=== PATIENT | male | born 1950 | race Caucasian/White ===

== ENCOUNTER 2019-10-25 14:16 | Observation (INO) ==
[2019-10-25] MEDS ORDERED: Isovue-370 500 ML BOTTLE IVP ONE (14:36)
[2019-10-25 14:51] LABS: Hematocrit 42.9 % (37.5-50.1); Hemoglobin 14.5 g/dL (12.9-16.9); Mean Corpuscular HGB Conc 33.8 g/dL (31.6-35.5); Mean Corpuscular Hemoglobin 33.2 pg (28.0-33.3); Mean Corpuscular Volume 98.2 fL (83.0-100.0); Mean Platelet Volume 10.3 fL (9.4-12.4); Platelet Count 193 K/mcL (140-400); Red Blood Count 4.37 M/mcL (4.19-5.50); Red Cell Distribution Width 13.1 % (11.5-14.5); White Blood Count 9.3 K/mcL (4.3-11.1)
[2019-10-25 14:57] LABS: Activated Partial Thrombo Time 29.6 Seconds (26.0-36.0)
[2019-10-25 15:12] LABS: BUN/Creatinine Ratio 13 (6-26); Blood Urea Nitrogen 10 mg/dL (8-23); Calcium 9.4 mg/dL (8.6-10.3); Carbon Dioxide 25 mEq/L (23-29); Chloride 102 mEq/L (98-107); Glucose 79 mg/dL (70-105); Osmolality,Calculated 276 (280-300); Potassium 3.8 mEq/L (3.5-5.1); Sodium 134 mEq/L (136-145); eGFR For African Americans > 60 (> 60); eGFR For Non-African Americans > 60 (> 60)
[2019-10-25 15:14] LABS: Troponin I < 0.03 ng/mL (< 0.04)
[2019-10-25] MEDS ORDERED: Aspirin 325 MG TABLET PO ONE (16:04)
[2019-10-25] MEDS ORDERED: Naloxone 0.4 MG/ML INJ IVP PRN (17:18)
[2019-10-25] MEDS ORDERED: Ondansetron 4 MG/2 ML VIAL IVP PRN (17:18)
[2019-10-25] MEDS: *HR* Heparin 5,000 UNIT/ML VIAL SQ SCH (21:33)
[2019-10-26 01:54] LABS: BUN/Creatinine Ratio 14 (6-26); Blood Urea Nitrogen 12 mg/dL (8-23); Calcium 8.8 mg/dL (8.6-10.3); Carbon Dioxide 28 mEq/L (23-29); Chloride 104 mEq/L (98-107); Chol/HDL Ratio 2.1 (0-4.9); Cholesterol 170 mg/dL (< 200); Glucose 140 mg/dL (70-105); HDL Cholesterol 80 mg/dL (40-59); LDL Cholesterol,Calculated 75 mg/dL (0-99); Osmolality,Calculated 288 (280-300); Potassium 3.5 mEq/L (3.5-5.1); Sodium 138 mEq/L (136-145); Triglycerides 73 mg/dL (< 150); eGFR For African Americans > 60 (> 60); eGFR For Non-African Americans > 60 (> 60)
[2019-10-26] MEDS: *HR* Heparin 5,000 UNIT/ML VIAL SQ SCH ×2 (05:20→13:41)
[2019-10-26] MEDS ORDERED: Aspirin 81 MG TAB.CHEW PO SCH (09:00)
[2019-10-26 10:45] VITALS: BP 146/83
[2019-10-27] MEDS ORDERED: Verapamil ER (24 HR) 240 MG TABLET.ER PO SCH (09:00)
== END 2019-10-26 14:39 | disposition home or self-care (01) ==
LOC: 3BNU 14:16 → EMEROOARM 14:16 → 3BNU 18:30
PROVIDERS: ADMIT Family Medicine; ATTEND Family Medicine

== ENCOUNTER 2021-08-23 16:39 | Observation (INO) ==
[2021-08-23 17:23] LABS: Basophils # 0.1 K/mcL (0.0-0.2); Basophils % 0.4 %; Eosinophils # 0.1 K/mcL (0.0-0.6); Eosinophils % 1.1 %; Hematocrit 49.7 % (37.5-50.1); Hemoglobin 16.8 g/dL (12.9-16.9); Immature Granulocytes % 0.4 % (0-4); Lymphocytes # 1.8 K/mcL (0.6-4.6); Lymphocytes % 14.3 %; Mean Corpuscular HGB Conc 33.8 g/dL (31.6-35.5); Mean Corpuscular Hemoglobin 32.2 pg (28.0-33.3); Mean Corpuscular Volume 95.2 fL (83.0-100.0); Mean Platelet Volume 10.4 fL (9.4-12.4); Monocytes # 0.7 K/mcL (0.0-1.3); Monocytes % 5.4 %; Neutrophils # 10.1 K/mcL (1.6-8.9); Platelet Count 237 K/mcL (140-400); Red Blood Count 5.22 M/mcL (4.19-5.50); Red Cell Distribution Width 13.5 % (11.5-14.5); Segmented Neutrophils % 78.4 %; White Blood Count 12.9 K/mcL (4.3-11.1)
[2021-08-23 17:35] LABS: Activated Partial Thrombo Time 32.4 Seconds (26.0-36.0)
[2021-08-23] MEDS ORDERED: Ondansetron 4 MG/2 ML VIAL ONE (17:41)
[2021-08-23] MEDS: Ondansetron 4 MG/2 ML VIAL IVP PRN ×2 (17:43→19:07)
[2021-08-23 17:44] LABS: Alanine Aminotransferase 29 Units/L (7-52); Albumin 3.9 g/dL (3.5-5.7); Alkaline Phosphatase 105 Units/L (34-104); Aspartate Amino Transferase 25 Units/L (13-39); BUN/Creatinine Ratio 10 (6-26); Bilirubin,Direct 0.1 mg/dL (0.0-0.2); Bilirubin,Indirect 0.4 mg/dL (0.0-1.0); Bilirubin,Total 0.5 mg/dL (0.3-1.0); Blood Urea Nitrogen 8 mg/dL (8-23); Calcium 9.1 mg/dL (8.6-10.3); Carbon Dioxide 26 mEq/L (23-29); Chloride 104 mEq/L (98-107); Ethanol 392 mg/dL (Less than 10); Globulin 3.9 g/dL (2.4-3.5); Glucose 97 mg/dL (70-105); Osmolality,Calculated 292 (280-300); Potassium 3.8 mEq/L (3.5-5.1); Sodium 142 mEq/L (136-145); Total Protein 7.8 g/dL (6.4-8.9); eGFR For African Americans > 60 (> 60); eGFR For Non-African Americans > 60 (> 60)
[2021-08-23 17:50] LABS: Troponin I 0.04 ng/mL (< 0.04)
[2021-08-23] MEDS ORDERED: Acetaminophen 325 MG TABLET PO PRN (22:21)
[2021-08-23] MEDS ORDERED: Ondansetron 4 MG/2 ML VIAL IVP PRN (22:21)
[2021-08-23] MEDS ORDERED: Melatonin 3 MG TABLET PO PRN (22:21)
[2021-08-23] MEDS ORDERED: Naloxone 0.4 MG/ML INJ IVP PRN (22:21)
[2021-08-23] MEDS ORDERED: *HR* LORazepam 2 MG/ML VIAL IVP PRN ×3 (23:14)
[2021-08-24 00:32] LABS: Basophils % 0.2 %; Eosinophils % 0.1 %; Hematocrit 50.3 % (37.5-50.1); Hemoglobin 17.2 g/dL (12.9-16.9); Immature Granulocytes % 1.2 % (0-4); Lymphocytes # 1.2 K/mcL (0.6-4.6); Lymphocytes % 7.6 %; Mean Corpuscular HGB Conc 34.2 g/dL (31.6-35.5); Mean Corpuscular Hemoglobin 32.3 pg (28.0-33.3); Mean Corpuscular Volume 94.4 fL (83.0-100.0); Mean Platelet Volume 10.8 fL (9.4-12.4); Monocytes # 0.7 K/mcL (0.0-1.3); Monocytes % 4.8 %; Platelet Count 250 K/mcL (140-400); Red Blood Count 5.33 M/mcL (4.19-5.50); Red Cell Distribution Width 13.8 % (11.5-14.5); Segmented Neutrophils % 86.1 %; White Blood Count 15.1 K/mcL (4.3-11.1)
[2021-08-24 00:56] LABS: Alanine Aminotransferase 28 Units/L (7-52); Albumin 3.9 g/dL (3.5-5.7); Alkaline Phosphatase 108 Units/L (34-104); Aspartate Amino Transferase 26 Units/L (13-39); BUN/Creatinine Ratio 14 (6-26); Bilirubin,Total 0.7 mg/dL (0.3-1.0); Blood Urea Nitrogen 10 mg/dL (8-23); Calcium 9.1 mg/dL (8.6-10.3); Carbon Dioxide 19 mEq/L (23-29); Chloride 104 mEq/L (98-107); Chol/HDL Ratio 2.5 (0-4.9); Cholesterol 177 mg/dL (< 200); Globulin 4.1 g/dL (2.4-3.5); Glucose 106 mg/dL (70-105); HDL Cholesterol 70 mg/dL (40-59); LDL Cholesterol,Calculated 89 mg/dL (< 100); Magnesium 1.7 mg/dL (1.6-2.6); Osmolality,Calculated 287 (280-300); Sodium 139 mEq/L (136-145); Triglycerides 88 mg/dL (< 150); eGFR For African Americans > 60 (> 60); eGFR For Non-African Americans > 60 (> 60)
[2021-08-24] MEDS: Ringers Solution, Lactated 1,000 ML IVC SCH ×2 (01:15→11:46)
[2021-08-24] MEDS ORDERED: Perflutren Lipid Microsphere 1.3 ML in 0.9 % Sodium Chloride 8.7 ML IVP PRN (01:18)
[2021-08-24 03:01] LABS: Thyroid Stimulating Hormone 0.543 mcIU/mL (0.340-5.600)
[2021-08-24 03:37] LABS: Estimated Average Glucose 100 mg/dl; Hemoglobin A1C 5.1 %
[2021-08-24] MEDS: *HR* Enoxaparin 40 MG/0.4 ML SYRINGE SQ SCH (04:54)
[2021-08-24 05:27] LABS: Bilirubin,Urine Negative (Negative); Blood,Urine Negative (Negative); Clarity,Urine Clear (Clear); Color,Urine Yellow (Yellow); Glucose,Urine (UA) Normal (Normal); Ketones,Urine 10 mg/dL (Negative); Leukocyte Esterase,Urine Negative (Negative); Mucus,Urine Few per lpf (None-Few); Nitrite,Urine Negative (Negative); PH,Urine 5.5 pH Units (5.0-8.0); Protein,Urine 30 mg/dL (Neg-Trace); RBC,Urine 0-3 per hpf (0-3); Specific Gravity,Urine 1.026 (1.010-1.025); Squamous Epithelial Cell,Urine Few per hpf (None-Few); Urobilinogen,Urine Normal (Normal); WBC,Urine 0-3 per hpf (0-3)
[2021-08-24 05:34] LABS: Amphetamine Screen,Urine Negative ng/mL (Cutoff=1000); Barbiturate Screen,Urine Negative ng/mL (Cutoff=200); Benzodiazepines Screen,Urine Negative ng/mL (Cutoff=200); Cannabinoid Screen,Urine Negative ng/mL (Cutoff = 50); Cocaine Screen,Urine Negative ng/mL (Cutoff= 300); Opiate Screen,Urine Negative ng/mL (Cutoff=300); Phencyclidine Screen,Urine Negative ng/mL (Cutoff=25)
[2021-08-24 09:21] LABS: Folate 16.8 ng/mL (3.0-16.0)
[2021-08-24] MEDS ORDERED: Cyanocobalamin (B-12) 1,000 MCG/ML VIAL IM ONE (10:07)
[2021-08-24] MEDS: Thiamine (B-1) 100 MG TABLET PO SCH (11:45)
[2021-08-24] MEDS: Aspirin 81 MG TAB.CHEW PO SCH (11:46)
[2021-08-24] MEDS: Verapamil ER (24 HR) 240 MG TABLET.ER PO SCH (11:46)
[2021-08-24] MEDS: Folic Acid 1 MG TABLET PO SCH (11:46)
[2021-08-24] MEDS: Vitamin B Complex/Vit C/Vit E 1 EACH TABLET PO SCH (11:46)
[2021-08-25 02:01] LABS: Basophils % 0.3 %; Eosinophils # 0.2 K/mcL (0.0-0.6); Eosinophils % 2.9 %; Hematocrit 38.5 % (37.5-50.1); Immature Granulocytes % 0.3 % (0-4); Lymphocytes # 1.6 K/mcL (0.6-4.6); Lymphocytes % 19.6 %; Mean Corpuscular HGB Conc 33.5 g/dL (31.6-35.5); Mean Corpuscular Hemoglobin 32.5 pg (28.0-33.3); Mean Platelet Volume 11.2 fL (9.4-12.4); Monocytes % 12.6 %; Neutrophils # 5.1 K/mcL (1.6-8.9); Platelet Count 164 K/mcL (140-400); Red Blood Count 3.97 M/mcL (4.19-5.50); Red Cell Distribution Width 13.5 % (11.5-14.5); Segmented Neutrophils % 64.3 %; White Blood Count 7.9 K/mcL (4.3-11.1)
[2021-08-25 02:02] LABS: Hemoglobin 12.9 g/dL (12.9-16.9)
[2021-08-25 02:20] LABS: BUN/Creatinine Ratio 17 (6-26); Blood Urea Nitrogen 13 mg/dL (8-23); Calcium 8.4 mg/dL (8.6-10.3); Carbon Dioxide 28 mEq/L (23-29); Chloride 105 mEq/L (98-107); Glucose 94 mg/dL (70-105); Osmolality,Calculated 282 (280-300); Potassium 3.6 mEq/L (3.5-5.1); Sodium 136 mEq/L (136-145); eGFR For African Americans > 60 (> 60); eGFR For Non-African Americans > 60 (> 60)
[2021-08-25 02:59] VITALS: PULSE 60; O2SAT 92
[2021-08-25] MEDS: *HR* Enoxaparin 40 MG/0.4 ML SYRINGE SQ SCH (06:09)
[2021-08-25 06:45] VITALS: BP 152/88; TEMP 99.4
[2021-08-25] MEDS ORDERED: hydroCHLOROthiazide 25 MG TABLET PO SCH (09:00)
[2021-08-25] MEDS: Verapamil ER (24 HR) 240 MG TABLET.ER PO SCH (10:00)
[2021-08-25] MEDS: Folic Acid 1 MG TABLET PO SCH (10:00)
[2021-08-25] MEDS: Thiamine (B-1) 100 MG TABLET PO SCH (10:00)
[2021-08-25] MEDS: Vitamin B Complex/Vit C/Vit E 1 EACH TABLET PO SCH (10:01)
[2021-08-25] MEDS: Aspirin 81 MG TAB.CHEW PO SCH (10:01)
== END 2021-08-25 12:25 | disposition home or self-care (01) ==
LOC: 3BNU 16:39 → EMEROOARM 16:39 → SUATTDRO 22:19 → 3BNU 23:25
PROVIDERS: ADMIT Internal Medicine; ATTEND Family Medicine